=== PATIENT | female | born 1955 | race Caucasian/White ===

== ENCOUNTER → 2023-01-21 08:06 | Outpatient (CLI) | payer MEDICARE, SELFPAY ==
--- NOTE | 2023-01-21 | DI.MG.S_ITS ---
BILATERAL DIGITAL SCREENING MAMMOGRAM 3D/2D WITH CAD: 01/21/2023 CLINICAL: Routine screening. Family history of breast cancer. Comparison is made to exams dated: 11/04/2021 mammogram, 06/05/2020 mammogram, and 03/23/2019 mammogram - [facility]. There are scattered areas of fibroglandular density in both breasts (category b / 25%-50% glandular tissue). Current study was also evaluated with a Computer Aided Detection (CAD) system. No significant masses, calcifications, or other findings are seen in either breast. There has been no significant interval change. IMPRESSION: NEGATIVE There is no mammographic evidence of malignancy. A 1 year screening mammogram is recommended. Based on the Tyrer Cuzick model (a risk assessment model) the patient's lifetime risk is 4.2% and her 10 year risk is 2.2%. According to the ACR, ACS, and NCCN guidelines, an annual breast MRI exam along with mammogram is recommended if the patient's lifetime risk is 20% or greater. This exam was interpreted at Station ID: [id number]. NOTE: For mammograms, a report in lay terms will be sent to the patient. Approximately 15% of breast malignancies will not be visualized mammographically. In the management of a palpable breast mass, a negative mammogram must not discourage biopsy of a clinically suspicious lesion. Electronically Signed By: Ravi velez/nahun:01/21/2023 13:15:44 letter sent: Normal Exam ACR BI-RADS Category 1: Negative 3341F
== END ==
PROVIDERS: PCP Family Medicine; Referring Provider Family Medicine; Visit Provider Family Medicine
DX: Z12.31 Encounter for screening mammogram for malignant neoplasm of breast (principal); Z80.3 Family history of malignant neoplasm of breast
CPT/HCPCS: 77063; 77067

== ENCOUNTER 2023-07-12 12:23 | Day surgery (SDC) | payer MEDICARE, SELFPAY ==
[2023-07-06 10:36] VITALS: BMI 26.6
[2023-07-12] VITALS (12 sets, daily range): BP systolic 104–158; BP diastolic 59–80; PULSE 5–77; RESP 10–21; TEMP 36.1–36.8; O2SAT 92–99; BMI 26.6
--- NOTE | 2023-07-12 | PATH_ITS ---
[facility] Accession Number: [id number] No. of containers..01 Tissue . 01 Material submitted: . colon - ENTEROCELE SAC . 01 Diagnosis: Enterocele Sac, Prolapse Repair: Portion of fibromuscular and fibroconnective tissue (3.8 x 1.3 x 0.5 cm). Negative for significant atypia. Negative for neoplasia. MRV 07/16/2023 1437 Local . 01 Electronically signed: . June Beltran MD, Pathologist NPI- [id number] . 01 Gross description: . The specimen is received in formalin labeled with the patient's name, , and enterocele sac, consists of a pink-sanz, membranous, soft tissue fragment measuring 3.8 x 1.3 x 0.5 cm. One aspect is inked blue, and sectioning reveals a sanz, soft, cut surface with no lesions identified. Cloth Stock Sorter sections are submitted in cassette A1. ([id number]) /MRV 07/14/2023 1638 Local . 01 Pathologist provided ICD-10: N81.5 . 01 CPT . 704761 Specimen Comment: A courtesy copy of this report has been sent to [phone] Performed at: 01 [facility] [address] [place] [address] Suite [facility], [place], [place] [id number] MD Justin Dyer MD Phone: [phone]
[2023-07-12] MEDS: LACTATED RINGERS 1,000 ML 21 ML IV (13:33)
--- NOTE | 2023-07-12 13:47 | PM.PREOP ---
Pre-operative Note COVID-19 COVID-19 status: Not tested Interval Note History & Physical reviewed/Exam performed by Physician: Yes Changes to H&P: No
[2023-07-12] MEDS: CEFAZOLIN 2 GM/100 ML PREMIX 100 ML IV (14:20)
--- NOTE | 2023-07-12 14:41 | SUR.OPER ---
Lithotomy on padded OR bed, head on pillow, arms secured on padded arm boards at <90 degrees abduction. Legs secured in padded yellow fins stirrups.
[2023-07-12] MEDS: BUPIVACAINE 0.5% (PF) 30 ML, EPINEPHrine 0.15 MG INJ (14:49)
--- NOTE | 2023-07-12 16:11 | PM.GYNOP.1 ---
Operative Date/Time/Diagnoses Date of procedure: 07/12/23 Time of procedure: 14:00 Pre-op diagnosis: Rectocele Vaginal cuff prolapse following hysterectomy Post-op diagnosis: other (Same as above; Enterocele) Procedure & Clinicians Procedure: Procedures Operation Date: 07/12/23 14:15 Actual Procedure Side Surgeon p Transvaginal enterocele repair w/ Posterior colporrhaphy and perineoplasty s Sacrospinous ligament fixation Lizandro Cline MD Indications: History of present illness: Patient is a 68-year-old 4 para 4. She has had 4 spontaneous vaginal deliveries without complication. Patient had surgery for a prolapse bladder done 10+ years ago by Dr. Watts. She reports that she can feel something download when wiping. No urge incontinence. She does have stress urinary incontinence. She has no splinting with bowel movements. Is sexually active, and this was not affected by prolapse. Patient was found to have a third-degree rectocele with vaginal vault prolapse on exam. Patient is requesting repair. Physical exam: HEENT exam within normal limits. Lungs are clear to auscultation percussion. Heart is regular rate and rhythm no S3-S4 or murmurs. Abdomen is soft, nontender with no palpable organomegaly. Third-degree rectocele on previous exam with vaginal vault prolapse. Bladder is well supported. Consent form for posterior repair sacrospinous ligament fixation reviewed with the patient. 10% risk of infection that would require additional antibiotics, minimal risk for bleeding, but patient is agreeable to blood transfusion if necessary to save her life. Reaction to medication or anesthesia. Possible damage to bladder, bowel, ureters, nerve entrapment from the sacrospinous ligament stitch that could require additional surgery to repair. Recurrence of prolapse. Consent form signed and questions answered. Copy of consent form offered to the patient. Pre and postop instructions reviewed. Surgeon: Lizandro Cline Water Manager: Suze Banuelos Anesthesia Type: General Operative Notes Findings: Stage 3 enterocele/rectocele complex. Stage 1 vaginal cuff prolapse following hysterectomy. Specimen(s): other (Enterocele sac) Applied: catheter Estimated blood loss (mL): 100 Blood products transfused: none Procedure in detail: With the patient under satisfactory general anesthesia in the modified dorsal lithotomy position, the perineum, vagina, and lower abdomen were prepped and draped in the usual manner for posterior repair. Pre-surgical safety time-out was then taken in accordance with [facility] Main OR protocols. Sneed catheter was inserted in the bladder. A weighted speculum was placed in the vagina and the sidewalls of the pelvis palpated. The site for sacral spinous suspension of the vaginal mucosa was marked with a 2-0 Vicryl cyeeiw-xw-fkzjn stitch. The skin of the perineum, and posterior vaginal wall was infiltrated with 0.5% Marcaine with epinephrine. Midline incision vaginal mucosa was then made all the way up to near the apex of the vagina and a anna marie shaped piece of skin was excised from the perineal body and distal vagina. The vaginal mucosa was carefully dissected and once the posterior vaginal wall could be visualized an enterocele sac protruding down to and slightly beyond the introitus was found. The sac was dissected cephalad and once it had been adequately freed up, it was entered with Metzenbaum scissors. Dense and filmy adhesions involving abdominal fat and loops of small bowel were taken down with careful avoidance of the bowel itself. Once adequate dissection of the sac and adhesions had been accomplished, two layers of pursestring sutures with 0 Vicryl were used to close off the posterior cul-de-sac. Perirectal tissues were brought together in the midline so as to reinforce the plication of the sac. The sacral spinous ligament was identified by palpation bilaterally and a single 0 polyethylene suture was placed through each of the sacrospinous ligaments about 2 3 cm medial/cephalad to the spinous process. Traction on the ligaments revealed correct placement with excellent resistance. Police stitches were then placed at the appropriate level of the vaginal mucosa and after the uppermost portion of the vaginal incision had been closed with 0 Vicryl in a running interlocking stitch, the sacral spinous fixation stitches were tied. The stitch on the left however broke while tying down the suture but the right side alone provided excellent support and therefore the left-sided stitch was placed. Remainder of the posterior repair was then completed in the usual manner with 0 Vicryl lacljo-jr-sfnkgx used to plicate the levators in 2 layers and at that point redundant portions of the vaginal mucosa were excised vaginal mucosa was then closed with 0 Vicryl in a running interlocking stitch down to the introitus were crown stitch was placed. The skin overlying the perineum was then closed with 0 Vicryl in a subcuticular closure. Vaginal pack was then placed in the vagina and the patient was awakened from anesthesia. She was then transferred to the PACU for a period of observation after having tolerated the procedure well. Complications: none Post-operative Condition: stable Disposition: PACU Plan for aftercare: Routine post-op care, follow-up in 2 weeks postop
--- NOTE | 2023-07-12 16:49 | SUR.PHASEI ---
Report called to
--- NOTE | 2023-07-12 17:00 | SUR.PHASEI ---
Patient transferred to the floor with her belongings bag. Bedside report given to Lesley. VS stable. Jennifer-pad CDI. Sneed patent.
[2023-07-12] MEDS: LACTATED RINGERS 1,000 ML 100 ML IV (17:44)
[2023-07-12] MEDS: ACETAMINOPHEN 325 MG TABLET 650 MG PO ×2 (17:49→23:44)
--- NOTE | 2023-07-12 19:02 | PC.NURSE ---
Patient arrived to room 222 at 1655 this evening A&OX4. VSS, afebrile on RA. She denies pain. no vaginal bleeding on pad. Sneed in place. She is oriented to room and unit routines. Call light in reach, bed alarm on, admission assessment completed, IVF LR at 100 ml/hr. Prior to arrival in PACU BG was 182 w/o correction and she was able to eat about half of her dinner this evening. Continuous monitoring.
[2023-07-12] MEDS: KETOROLAC 30 MG/ML VIAL IV (20:27)
[2023-07-13 00:48] VITALS: BP 104/56; PULSE 72; RESP 16; TEMP 36.6; O2SAT 96
[2023-07-13] MEDS: KETOROLAC 30 MG/ML VIAL IV ×2 (01:56→09:42)
[2023-07-13] MEDS: LACTATED RINGERS 1,000 ML 100 ML IV (02:52)
[2023-07-13 04:00] VITALS: BP 124/61; PULSE 79; RESP 16; TEMP 36.7; O2SAT 97
[2023-07-13 04:35] LABS: Add Manual Diff / Slide Review NO; Basophils Absolute Auto 0 /uL (0-100); Basophils Percent Auto 0.2 % (0-2); Eosinophils Absolute Auto 0 /uL (0-450); Hematocrit 33.9 % (36-46); Hemoglobin 11.8 g/dL (12.0-16.0); Lymphocytes Absolute Auto 800 /uL (1100-4500); Lymphocytes Percent Auto 6.5 % (25-40); Mean Corpuscular HGB Conc 34.9 % (30-36); Mean Corpuscular Hemoglobin 29.1 PG (26-34); Mean Corpuscular Volume 83.2 fL (80-100); Monocytes Absolute Auto 400 /uL (0-900); Monocytes Percent Auto 3.5 % (3-14); Neutrophils Absolute Auto 11000 /uL (1500-7000); Neutrophils Percent Auto 89.8 % (50-75); Platelet Count 220 X10^3/uL (150-400); Red Blood Cell Count 4.07 X10^6/uL (4.0-5.2); Red Cell Distribution Width 13.7 % (11.6-14.8); White Blood Cell Count 12.2 X10^3/uL (4.5-11.0)
[2023-07-13] MEDS: ACETAMINOPHEN 325 MG TABLET 650 MG PO (07:49)
[2023-07-13] MEDS: LEVOTHYROXINE 75 MCG TABLET PO (07:53)
[2023-07-13 08:00] VITALS: BP 123/70; PULSE 69; RESP 16; TEMP 36.8; O2SAT 96
--- NOTE | 2023-07-13 08:00 | PC.NURSE ---
plant operator/shift supervisor: Sneed & vaginal packing removed @ 0630 per MD Cline. Patient ambulated to bathroom afterwards and voided 50cc urine. Complaints of minimal pain well controlled w/ scheduled post-op medication.
--- NOTE | 2023-07-13 08:45 | PM.DS.1 ---
History of Present Illness History of Present Illness Date Patient Seen: 07/13/23 Time Patient Seen: 08:45 Chief complaint: OPB Discharge Providers Provider Discharge Date: 07/13/23 Primary care physician: Zack Olmos MD Discharge provider: Lizandro Cline MD Summary Hospital Course Discharge Diagnosis: Vaginal apex prolapse following hysterectomy Vaginal enterocele and rectocele Status post transvaginal enterocele repair w/ Posterior colporrhaphy and perineoplasty, Sacrospinous ligament fixation of the vaginal vault Hospital Course: Stephanie was admitted on 07/12/2023 for her scheduled surgery and details of that procedure are well summarized on my operative note of that date. Following her surgery she's done extremely well with prompt return of bowel and bladder function, she's ambulating independently, tolerating a regular diet and her pain is well relieved with oral pain medications. She will be discharged at this time to home in an afebrile, normotensive condition to home after counseling regarding precautionary symptoms, limitations of activity, medications, and plans for follow-up which will be in 2 weeks. Medications at the time of discharge will include resumption of all preadmission medications as well as hydromorphone 2-4 mg p.o. q.4 hours as needed for pain, dispense 12 with no refills. Status at Discharge Cognitive/behavioral status at discharge: oriented Functional status at discharge: independent ambulation Overall status at discharge: patient is progressing back to baseline Time Spent with Patient Time spent: Less than 30 minutes Exam Vital Signs (past 8 hours): - 07/13/23 00:48 07/13/23 04:00 07/13/23 08:00 Temperature 97.9 F 98.1 F 98.2 F Pulse Rate 72 79 69 Respiratory Rate 16 16 16 Blood Pressure 104/56 L 124/61 123/70 Pulse Oximetry 96 97 96 Oxygen Flow Rate 0 Oxygen Delivery Method Room Air Oxygen Flow Rate 0 Const General: cooperative and comfortable Nutritional Appearance: average body habitus Orientation: alert and oriented x3 HENMT Head: normal to inspection, atraumatic and abrasion Ears: hearing grossly normal bilaterally Face and sinus: face symmetric Eyes General: appearance normal, both eyes and all related structures Conjunctivae: conjunctivae normal Sclera: sclerae normal EOM: EOM intact bilaterally Neck Neck: normal visual inspection Resp Effort & Inspection: normal respiratory effort and able to speak in complete sentences Auscultation: clear to auscultation bilaterally Cardio Rate: regular rate Rhythm: regular rhythm Heart Sounds: S1 normal, S2 normal and no murmurs GI Inspection: normal to inspection Palpation: soft and no hepatosplenomegaly External Female Exam: other (No significant bleeding noted) Extrem General: no calf tenderness Psych Appearance: grossly normal Mental Status: mental status grossly normal Speech and Movement: speech and movement normal Mood: congruent mood Affect: normal affect Attitude: cooperative Thought Process: normal Thought Content: normal Judgment: judgment good Objective Labs 07/13/23 04:10 Labs: Laboratory Results - last 24 hr 07/13/23 04:10 WBC 12.2 H RBC 4.07 Hgb 11.8 L Hct 33.9 L MCV 83.2 MCH 29.1 MCHC 34.9 RDW 13.7 Plt Count 220 Neut % (Auto) 89.8 H Lymph % (Auto) 6.5 L [place] % (Auto) 3.5 Eos % (Auto) 0.0 L Baso % (Auto) 0.2 Neut # (Auto) 41764 H Lymph # (Auto) 800 L [place] # (Auto) 400 Eos # (Auto) 0 Baso # (Auto) 0 PFSH Medical History (Updated 10/10/23 @ 22:54 by Cherrie Cedeño MD) Hyperthyroidism BCC (basal cell carcinoma) Hypercholesteremia Osteopenia Fractures Foot pain Chicken pox (~1961) Diabetes mellitus (~2020) Skin cancer (~2015) Surgical History (Updated 06/08/23 @ 13:01 by Diann Hilliard) Anesthesia History of elbow surgery (~2017) History of bladder surgery History of foot surgery (~2008) Family History (Updated 06/08/23 @ 13:09 by Diann Hilliard) Father COPD (chronic obstructive pulmonary disease) Mother Diabetes mellitus Hypertension Social History household members: spouse Smoking Status: Never smoker alcohol intake: current Discharge Assessment & Plan Assessment and Plan Assessment: Vaginal apex prolapse following hysterectomy Vaginal enterocele and rectocele Status post transvaginal enterocele repair w/ Posterior colporrhaphy and perineoplasty, Sacrospinous ligament fixation of the vaginal vault Plan of Treatment: Routine postoperative care with follow-up planned for 2 weeks postop or as needed. Discharge Plan Discharge Plan Patient Disposition: Home Provider Discharge Comment: Please review the written instructions you received when you were discharged from the hospital. Your follow-up appointment is scheduled for 2 weeks after your surgery and I look forward to seeing you then. If however in the meanwhile you have any issues, concerns, or questions please contact our office at [phone], or via the patient portal. Discharge orders & Medications Discharge Orders: Discharge (Order); Ordered 07/13/23 Ordered By: Lizandro Cline Prescriptions: New hydromorphone 2 mg Tablet 2 mg PO Q4HR PRN (Reason: Pain, Severe (7-10)) Qty: 12 0RF Continued metformin 1,000 mg tablet 1,000 mg PO DAILY levothyroxine 75 mcg capsule 75 mcg PO DAILY lovastatin 10 mg tablet 10 mg PO DAILY amlodipine 5 mg tablet 5 mg PO DAILY aspirin 81 mg Tablet,Chewable 81 mg PO DAILY No Action estradiol 0.01 % (0.1 mg/gram) cream 1 g vaginal 2XW Qty: 42.5 0RF Ozempic 0.25 mg or 0.5 mg (2 mg/3 mL) pen injector 0.5 mg SUBCUT QWEEK Follow up/Referrals: Zack Olmos MD [Primary Care Provider] - Lizandro Cline MD [Physician] - As previously scheduled Diet/Activity/Treatments Diet: Diet as Tolerated Activity: As tolerated Skin/Wound/Dressing Care Report to your healthcare provider any signs of infection, such as:: chills, fever, increased pain, unusual drainage and unusual redness Dressing: N/A Visit Report/Discharge Packet Instructions: DI for Cystocele and Rectocele Repair, DI for Prescription Opioid Use Stand Alone Forms: Patient Portal/API, Surgery Discharge Discharge Data Primary Care Provider: Zack Olmos Attending Provider: Shefali Watts
--- NOTE | 2023-07-13 09:40 | CM.DANOTE ---
DCP Assessment Note Pt is a 68yo F here following vaginal prolapse with Dr. Cline on 07.12.23. PCP Zack Mora Payer [employer] [facility] and self pay HELICOPTER MECHANIC reviewed EMR. HELICOPTER MECHANIC entered room and introduced self and role. Pt walking around room. Pt reports no CM needs. (Noah [phone]) on way [place] [facility] [place] fruit or nut picker pt. Plan: home today with spouse. No CM needs identified. CM team will follow as needed. GEORGINA Garcia Discharge Planning/Care Management CM Discharge Assessment Start: 07/13/23 09:39 Freq: Status: Active Protocol: Document 07/13/23 09:39 SL (Rec: 07/13/23 09:40 SL [id number]) Discharge Planning Assessment Assigned Duco Polisher GEORGINA Daniels DPOA/Assigned Designee Name Noah Cline (spouse) Contact Information [phone] Advance Directives? No History Provided By Patient,Medical Record Prior Living Arrangements House Household Members spouse Type of transporation used prior to Drives own vehicle admit Independent with ADL's Yes Is patient alert and oriented? Yes Barriers to Discharge No Discharge Plan Home Transportation Arrangement spouse in POV Referrals Initiated None needed Whiteboard Updated in Patient Room with Yes name and ext. # of Duco Polisher Review Status In Process Next Review Type Continued Stay Review Pre-Anesthesia Assessment Start: 07/06/23 10:36 Freq: Status: Complete Protocol: Document 07/06/23 10:36 CAB (Rec: 07/06/23 10:49 CAB [id number]) Pre-Anesthesia Assessment Patient Information Reviewed Via Chart Review Primary Care Provider Zack Olmos Seen Specialist in Last 12 Months Yes Specialist Seen Restaurant General Manager Primary Language Georgian Catalogue Maker Required No Height 172.72 cm Weight 79.379 kg Body Mass Index (BMI) 26.6 Anesthesia Review Requested No Veterinary Meat Inspector No Patient is completely paralyzed or No completely immobile Mental Status Oriented to own ability Is patient on oxygen? No Hx Sleep Apnea No Currently Taking a Beta He No Cardiac Testing No Hx Pacemaker/ICD No Pacemaker Rep Required? No Bladder Pattern Incontinent, Stress Urinary Catheter Present No Hx Urinary Self Catheterization No Diabetes Yes Patient No Lactating No Marital Status Lives With spouse Patient Discharge Plan Description Return Home
[2023-07-13] MEDS: METFORMIN HCL 500 MG TABLET 1000 MG PO (09:41)
[2023-07-13] MEDS: ASPIRIN 81 MG CHEW TAB PO (09:42)
[2023-07-13] MEDS: AMLODIPINE 5 MG TABLET PO (09:42)
--- NOTE | 2023-07-13 10:50 | PC.NURSE ---
Patient is A&OX4, VSS afebrile on RA. She is walking around her room independently. She had vaginal packing and the holley removed at 0600 per director oracle retail RN. She is voiding without difficulty and denies pain. She has had scant bleeding to laura pad. She tolerates breakfast well this a.m. MD Cline at bedside evaluating patient and clears her for discharge home. She verbalizes understanding of activity, s/sx of infection, medication and follow up appointment. She is escorted by RN to private vehicle for discharge home at approximately 1015 this a.m.
== END 2023-07-13 10:15 | disposition home or self-care (01) ==
LOC: OR 12:24 → AC 12:26
PROVIDERS: Obstetrics & Gynecology; PCP Family Medicine; Referring Provider Specialist; Visit Provider Specialist
PROC: (CPT 57282; principal; 2023-07-12 14:15)
DX: N99.3 Prolapse of vaginal vault after hysterectomy (principal); N39.3 Stress incontinence (female) (male); N73.6 Female pelvic peritoneal adhesions (postinfective)
CPT/HCPCS: 57282; 57250; 36415; 82962; 85025; J0171; J0690; J1100; J1170; J1885; J2405; J2704

== ENCOUNTER → 2023-07-21 15:11 | Outpatient (CLI) | payer MEDICARE, SELFPAY ==
[2023-07-12 17:22] VITALS: BMI 26.6
--- NOTE | 2023-08-18 10:50 | DIAB.MNT ---
Initial Diabetes Medical Nutrition Therapy Assessment Name: Stephanie Cline Date: 07/21/23 Time: 335-205 Dx: Type II Diabetes Stephanie presents for initial DM visit. Reports initial DM ed at [facility] at diagnosis 3-4 years ago per report. Recent BG of 12.2% 03/2023. States she is wondering when to check BG, what to eat? Lives with . Plans to see PCP this week for new labs. Reports preDm for a long time. Pre last lab work saw home BG up to 500mg/dl. When she was in Dm ed previous, she was able to lose wt and get FBG in the 130s. SE of hyperglycemia for her include excessive thirst and urination. Improved more recently. Diet Recall: 530a: coffee 10a: starbuts latte and egg bites OR 12p: oranges and cheese 5p: barber with 0.5c rice and handfull of marcello chips 7p: burmese muff with jam 9p orange with cheese Lulú: 64oz water, coffee, low CHO ICE beverage Stopped eating candy. Loves to bake but has been giving away baked goods. Anthropometrics: Ht: 68 Wt: 175.6# 12/2022 per EMR Physical Activity: Dog walks a couple blocks. PA restrictions since recent surgery. INterested in going back to gym. Self-Monitoring Blood Glucose: Recent FBG 190-225mg/dl. Diabetes Medications: Metformin 1000mg BID Pertinent Labs: 12.2% 03/2023 HgA1c Past Medical History: (Last Updated 07/06/23 @ 10:48 by Skylar Whatley RN) BCC (basal cell carcinoma) Chicken pox (~1961) Diabetes mellitus (~2020) Foot pain Fractures Hypercholesteremia Hyperthyroidism Osteopenia Skin cancer (~2015) Nutrition Rx: Carbohydrates: Meal: 30g Snack:15-30g Nutrition Diagnosis: - Nutrition and food related knowledge deficit r/t unclear on meal timing or portions aeb diet recall Intervention: This participant was very receptive. Provided appropriate educational handouts. Discussed the following topics: Completed intake assessment. Discussed barriers to care. Pathophysiology of T2DM HgA1c, its correlation to blood glucose numbers, and rationale for goal Importance of self-monitoring, how often, and when to check. Suggested checking at different times to evaluate meals Plate Method, impact of macronutrients on blood sugar, meal timing, carbohydrate counting, pairing macronutrients and spreading out carbohydrates for better blood glucose management Recommended servings for carbohydrates at meals and snacks Heart health nutrition Brainstormed appropriate meal plan based on food preferences Role of physical activity and following provider guidelines for safety Created SMART goals for patient self-care and success. Goals: Check a few postprandial BG Try some new low carb meal/snack ideas Try 10 min walks after meals Follow-up: CALLIE LANGFORD follow-up in 3-4 weeks Mayra Smith RDN, ANASTASIYA Certified Diabetes Care and Cold Reduction Roller P: [phone] Thank you for this referral
== END ==
PROVIDERS: PCP Family Medicine; Referring Provider Family Medicine
DX: E11.9 Type 2 diabetes mellitus without complications (principal); Z79.84 Long term (current) use of oral hypoglycemic drugs; Z71.3 Dietary counseling and surveillance
CPT/HCPCS: 97802

== ENCOUNTER → 2023-08-18 10:01 | Outpatient (CLI) | payer MEDICARE, SELFPAY ==
[2023-07-12 17:22] VITALS: BMI 26.6
--- NOTE | 2023-08-20 14:12 | DIAB.MNTFU ---
Follow-up Diabetes Medical Nutrition Therapy Assessment Name: Stephanie Cline Date: 08/18/23 Time: 1009-2025a Dx: Type II Diabetes Stephanie presents for DM follow-up with recent hgA1c of 8.9%, down from 12.2% in 03/2023. Started Ozempic at 0.25mg per week. Plans to increase to 0.5mg after 28 days per rx she tells me. No SE so far, though has noticed a reduced appetite. Using low carb options, ie eng muffins and wraps. Recent tooth infection, though BG have been in range since starting Ozempic. Looking to do some food prep to help with protein options. Diet recall: B: protein shake L 12-3p: canned soup OR veggies with string cheese D: 5-6p 1c melon with beef jerky and half pb sandwich OR peas, carrots x 21g CHO with chicken sn: 8-9p garlic almonds with berries or cheese or 3c popcorn Anthropometrics: Ht: 68 Wt: 166.1# reported 175.6# 12/2022 per EMR Physical Activity: Dog walks a couple blocks. PA restrictions since recent surgery. INterested in going back to gym. Trying to be more active in general. Self-Monitoring Blood Glucose: Last visit FBG 190-225mg/dl. Improved now with numbers 115-130s with Ozempic. Diabetes Medications: Metformin 1000mg BID Ozempic 0.25mg per week Pertinent Labs: HgA1c 12.2% 03/2023 8.9% 07/2023 reported Past Medical History: (Last Updated 07/06/23 @ 10:48 by Skylar Whatley RN) BCC (basal cell carcinoma) Chicken pox (~1961) Diabetes mellitus (~2020) Foot pain Fractures Hypercholesteremia Hyperthyroidism Osteopenia Skin cancer (~2015) Nutrition Rx: Carbohydrates: Meal: 30g Snack:15-30g Nutrition Diagnosis: - Nutrition and food related knowledge deficit r/t unclear on meal timing or portions aeb diet recall- improved - Physical inactivity r/t recent sx and stage of change preparation aeb pt report - new Intervention: This participant was very receptive. Provided appropriate educational handouts. Discussed the following topics: Blood sugar review and trends Eating out tips Meal planning and carb counting review Physical activity plan and progress, local gym schedule and classes SMBG: getting some pc readings to evaluate meals Ozempic and impact on appetite Created SMART goals for patient self-care and success. Goals: Check a few postprandial BG - met/ in progress Try some new low carb meal/snack ideas- met Try 10 min walks after meals- not met Check BG at 7p after dinner- new Start elliptical safely- new Food prep chicken- new Follow-up: CALLIE LANGFORD follow-up in 3-4 weeks Mayra Smith RDN, ANASTASIYA Certified Diabetes Care and Armored Transport Service Manager P: [phone] Thank you for this referral
== END ==
LOC: DIET 10:01
PROVIDERS: PCP Family Medicine; Referring Provider Family Medicine; Visit Provider Family Medicine
DX: E11.9 Type 2 diabetes mellitus without complications (principal); Z79.84 Long term (current) use of oral hypoglycemic drugs; Z79.85 Long-term (current) use of injectable non-insulin antidiabetic drugs; Z71.3 Dietary counseling and surveillance
CPT/HCPCS: 97803

== ENCOUNTER → 2023-09-16 08:53 | Outpatient (CLI) | payer MEDICARE, SELFPAY ==
[2023-07-12 17:22] VITALS: BMI 26.6
--- NOTE | 2023-09-17 15:30 | DIAB.FU ---
Follow-up Diabetes Education Assessment Name: Stephanie Cline Date: 09/16/23 Time: 1-531y Dx: Type II Diabetes Stephanie presents for follow-up DM visit. Reports improved BG, though has concerns about dosing. Reports titrating up to 0.5mg dose now, but new rx is for 0.25mg (previous dose). States she has called and discussed with PCP staff and they report this is correct. Encouraged her to discuss this again with PCP, especially since FBG are in goal with higher dose. May benefit from higher dose or a different dm medication. Reports nausea each week the day after taking GLP1. Also pharmacies in the area keep running out of Ozempic. May benefit from either having a back up rx for another GLP1 or dm med OR switching all together-- Jardiance? Reports taking two large Metformin pills BID. Unclear if these are 500 or 1000mg tabs. Reviewed her food journal. She is managing portions well and pairing with proteins. Reports some difficulty with what foods to eat at dinner when likes different types of foods. Also avoiding carb foods, ie potatoes, all together. seems she could portion these foods with her protein and veggies appropriately and check pc BG. has had weight loss. Down to 155# from 175.6# 12/2022. Up to date on dental and eye appt. Physical Activity: walking after dinner 30 min, weather dependent Self-Monitoring Blood Glucose: 10/25 FBG in goal, much improved on higher dose of Ozempic. Date Pre Post Pre Post Pre Post HS 09/08 109 09/09 138 09/10 115 09/11 142 09/12 114 09/13 107 09/14 119 Diabetes Medications: Metformin 1000mg BID Ozempic 0.5mg per week Pertinent Labs: HgA1c 12.2% 03/2023 8.9% 07/2023 reported Past Medical History: (Last Updated 07/06/23 @ 10:48 by Skylar Whatley RN) BCC (basal cell carcinoma) Chicken pox (~1961) Diabetes mellitus (~2020) Foot pain Fractures Hypercholesteremia Hyperthyroidism Osteopenia Skin cancer (~2015) Intervention: This participant was very receptive. Provided appropriate educational handouts. Discussed the following topics: Recent blood sugar results and trends Medication management: SGLT2i vs GLP1 RA, SE and actions, dosage for Metformin Review of general nutrition recommendations and current intake Physical activity plan and impact on blood sugars Prevention of complications: foot care, dental and eye appointments Created SMART goals for patient self-care and success. Goals: Try 10 min walks after meals- met Check BG at 7p after dinner- not met Start elliptical safely- in progress Food prep chicken- d/c Check Metformin dose- new Discuss Dm meds with PCP- new Try potato at dinner and check pc reading- new Check a few 1-2 hr pc readings- new Follow-up: CALLIE LANGFORD follow-up in October after PCP visit, per pt request. Overall, Stephanie is doing well with DM management. She is having some confusion with medications, ie dosing, rx, and supply. She plans to discuss this with he PCP and is looking forward to her next hga1c. Mayra Smith RDN, [facility] Certified Diabetes Care and School Bus Driver/Teacher Assistant P: [phone] Thank you for this referral
== END ==
PROVIDERS: PCP Family Medicine; Referring Provider Family Medicine; Visit Provider Family Medicine
DX: E11.9 Type 2 diabetes mellitus without complications (principal); Z79.84 Long term (current) use of oral hypoglycemic drugs; Z79.85 Long-term (current) use of injectable non-insulin antidiabetic drugs; Z71.3 Dietary counseling and surveillance
CPT/HCPCS: G0108

== ENCOUNTER → 2023-10-29 10:47 | Outpatient (CLI) | payer MEDICARE, SELFPAY ==
[2023-07-12 17:22] VITALS: BMI 26.6
--- NOTE | 2023-11-17 17:32 | DIAB.MNTFU ---
Follow-up Diabetes Medical Nutrition Therapy Assessment Name: Stephanie Cline Date: 10/29/23 Time: 110a Dx: Type II Diabetes Provider: Amarilis Stephanie presents for Dm follow-up. Wt down to her goal of 150#. Diet recall indicates low CHO. Incorporating some cheese and veggies. Dinner often missing protein. Found a dessert she enjoys, zero sugar pudding with whip cream. Having less stomach cramps with Ozempic now. Reports sometimes not eating, though most days eats three meals. Has added potato to dinner, as discussed last visit. Postprandial BG was 102mg/dl. She is very happy about this. Anthropometrics: Ht: 68 Wt: 150#r reported Physical Activity: Gardening started. No walks. Wants to restart gym. Self-Monitoring Blood Glucose: Recent FB, 125, 130, 132, 127, 130, 160mg/dl. Most in ADA goal, though this is up from her prior week of all BG 110-130mg/dl. Only change is she is no longer doing evening walks. Diabetes Medications: Metformin 1000mg BID Ozempic 0.5mg per week Pertinent Labs: HgA1c 12.2% 03/2023 8.9% 07/2023 reported 6.0% 10/2023 reported Past Medical History: (Last Updated 07/06/23 @ 10:48 by Skylar Whatley RN) BCC (basal cell carcinoma) Chicken pox (~1961) Diabetes mellitus (~2020) Foot pain Fractures Hypercholesteremia Hyperthyroidism Osteopenia Skin cancer (~2015) Nutrition Rx: Carbohydrates: Meal: 30g Snack:15-30g Nutrition Diagnosis: - Reduced physical activity r/t eliminating walks aeb pt report - Inconsistent protein intake r/t mostly CHO and veg at dinner aeb diet recall Intervention: This participant was very receptive. Provided appropriate educational handouts. Discussed the following topics: Blood sugar review and trends. Impact of food intake on results. Maintaining healthy wt Eating TID minimum Importance of adding protein to meals/snacks FBG and physical activity Physical activity plan Created SMART goals for patient self-care and success. Goals: Check Metformin dose- met Discuss Dm meds with PCP- met Try potato at dinner and check pc reading- met Check a few 1-2 hr pc readings- met Start gym- new Restart evening walks- new Try hemp hearts for oatmeal pro- new Add pro to dinner- new Follow-up: CALLIE LANGFORD follow-up prfredi Smith RDN, [facility] Certified Diabetes Care and Converter Skimmer P: [phone] Thank you for this referral
== END ==
PROVIDERS: PCP Family Medicine; Referring Provider Family Medicine
DX: E11.9 Type 2 diabetes mellitus without complications (principal); Z79.84 Long term (current) use of oral hypoglycemic drugs; Z79.85 Long-term (current) use of injectable non-insulin antidiabetic drugs; Z71.3 Dietary counseling and surveillance
CPT/HCPCS: 97803

== ENCOUNTER → 2024-02-28 13:05 | Outpatient (CLI) | payer MEDICARE, SELFPAY ==
[2023-07-12 17:22] VITALS: BMI 26.6
--- NOTE | 2024-02-28 13:06 | DI.MG.S_ITS ---
BILATERAL DIGITAL SCREENING MAMMOGRAM 3D/2D WITH CAD: 02/28/2024 CLINICAL: Routine screening. Family history of breast cancer. Comparison is made to exams dated: 01/21/2023 mammogram - [facility], 11/04/2021 mammogram, and 06/05/2020 mammogram - [facility]. There are scattered areas of fibroglandular density in both breasts (category b / 25%-50% glandular tissue). Current study was also evaluated with a Computer Aided Detection (CAD) system. No significant masses, calcifications, or other findings are seen in either breast. There has been no significant interval change. IMPRESSION: NEGATIVE There is no mammographic evidence of malignancy. A 1 year screening mammogram is recommended. Based on the Tyrer Cuzick model (a risk assessment model) the patient's lifetime risk is 3.9% and her 10 year risk is 2.2%. According to the ACR, ACS, and NCCN guidelines, an annual breast MRI exam along with mammogram is recommended if the patient's lifetime risk is 20% or greater. This exam was interpreted at Station ID: [id number]. NOTE: For mammograms, a report in lay terms will be sent to the patient. Approximately 15% of breast malignancies will not be visualized mammographically. In the management of a palpable breast mass, a negative mammogram must not discourage biopsy of a clinically suspicious lesion. Electronically Signed By: Ravi velez/nahun:02/28/2024 18:23:30 letter sent: Normal Exam ACR BI-RADS Category 1: Negative 3341F
== END ==
LOC: MAMMO 13:06
PROVIDERS: PCP Family Medicine; Referring Provider Family Medicine; Visit Provider Family Medicine
DX: Z12.31 Encounter for screening mammogram for malignant neoplasm of breast (principal); Z80.3 Family history of malignant neoplasm of breast; R92.323 Mammographic fibroglandular density, bilateral breasts
CPT/HCPCS: 77063; 77067

== ENCOUNTER → 2024-12-26 11:34 | Outpatient (CLI) | payer OTHER, SELFPAY ==
[2023-07-12 17:22] VITALS: BMI 26.6
[2024-12-26 12:33] LABS: Appearance Urine UA SL CLOUDY; Bilirubin Urine UA NEGATIVE (NEGATIVE); Color Urine UA YELLOW; Glucose Urine UA NEGATIVE (Negative); Ketones Urine UA TRACE (NEGATIVE); Leukocyte Esterase Urine UA 3+ (NEGATIVE); Nitrite Urine UA NEGATIVE (Negative); Occult Blood Urine UA TRACE-INTACT (Negative); Protein Urine UA TRACE (Negative); Specific Gravity Urine UA 1.015 (1.000-1.035); Urobilinogen Urine UA 1.0 E.U./dL (0.2)
[2024-12-26 12:41] LABS: Culture Indicated Urine Specimen Cultured; pH Urine UA 5.5 (4.5-8.0)
== END ==
PROVIDERS: PCP Family Medicine; Referring Provider Obstetrics & Gynecology; Visit Provider Obstetrics & Gynecology
DX: R30.0 Dysuria (principal)
CPT/HCPCS: 81001; 87086

== ENCOUNTER → 2025-03-14 10:48 | Outpatient (CLI) | payer OTHER, SELFPAY ==
[2023-07-12 17:22] VITALS: BMI 26.6
--- NOTE | 2025-03-14 10:49 | DI.MG.S_ITS ---
MM screening mammo BI: 03/14/2025. BI-RADS: 1 CLINICAL: 70-year old female for bilateral screening mammogram. Tyrer-Cuzick lifetime risk of 3.1%. No personal or first-degree family history of breast cancer. PRIOR EXAMS 02/28/2024, 01/21/2023, 11/04/2021, 06/05/2020. MAMMOGRAPHY TECHNIQUE: 2D and 3D (tomosynthesis) digital mammographic views obtained, with additional images as needed for full coverage. Current study was also evaluated with a Computer Aided Detection (CAD) system. DENSITY B. There are scattered areas of fibroglandular density. MAMMOGRAPHY FINDINGS Bilateral: No suspicious mass, asymmetry, microcalcification, or other abnormality seen. IMPRESSION: * No evidence of malignancy. RECOMMENDATIONS Bilateral * Annual screening mammography. OVERALL ASSESSMENT CATEGORY BI-RADS-1: Negative. The [employer] recommends annual screening mammography beginning at age 40 for women with average risk of breast cancer. ELECTRONICALLY SIGNED: Ester Rivas M.D. on 03/14/2025 at 01:47:48 PM PT Interpreting Station ID: [id number]
== END ==
LOC: MAMMO 10:48
PROVIDERS: PCP Family Medicine; Referring Provider Family Medicine; Visit Provider Family Medicine
DX: Z12.31 Encounter for screening mammogram for malignant neoplasm of breast (principal)
CPT/HCPCS: 77063; 77067